=== PATIENT | male | born 1995 | race Asian ===

== ENCOUNTER 2018-07-04 22:13 | Observation (INO) ==
[2018-07-04] MEDS ORDERED: MoRPHine SULFATE 4 MG/ML 1 ML CARP\\VIAL IV STA (23:16)
[2018-07-04] MEDS ORDERED: ONDANSETRON INJ 2 MG/ML 2 ML VIAL IV STA (23:16)
[2018-07-04] MEDS ORDERED: SODIUM CHLORIDE 0.9% 1000ML 1,000 ML IV STA (23:16)
[2018-07-04 23:17] LABS: Basophils # (auto) 0.02 K/uL (0-0.2); Basophils % (auto) 0.1 %; Eosinophils # (auto) 0.15 K/uL (0-0.5); Hematocrit (blood only) 43.2 % (42-52); Hemoglobin 16.3 g/dL (14.0-18.0); Immature Granulocytes # (auto) 0.05 K/uL (0.00-0.02); Immature Granulocytes % (auto) 0.3 %; Lymphocytes # (auto) 0.88 K/uL (1.2-3.4); Lymphocytes % (auto) 5.7 %; Mean Corpuscular Hgb Conc 37.7 g/dL (32-36); Mean Corpuscular Volume 86.7 fL (80-100); Mean Platelet Volume 9.7 fL (7.4-10.4); Monocytes # (auto) 1.07 K/uL (0.11-0.59); Neutrophils # (auto) 13.14 K/uL (1.4-6.5); Neutrophils % (auto) 85.9 %; Platelet Count 244 K/uL (130-400); RDW Coefficient of Variation 11.9 % (11.5-14.5); RDW Standard Deviation 37.7 fL (36.4-46.3); Red Blood Count 4.98 M/uL (4.7-6.1); White Blood Count 15.31 K/uL (4.8-10.8)
[2018-07-04 23:47] LABS: Alanine Aminotransferase 18 U/L (12-78); Albumin Level 4.3 gm/dl (3.4-5.0); Alkaline Phosphatase 107 U/L (45-117); Aspartate Aminotransferase 16 U/L (15-37); BUN Creatinine Ratio 11.8 (10-20); Bilirubin,Total 1.3 mg/dl (0.2-1); Blood Urea Nitrogen 11 mg/dl (7-18); Calcium 9.5 mg/dl (8.5-10.1); Carbon Dioxide 24 mmol/L (21-32); Chloride 103 mmol/L (98-107); Est GFR (African American) 127.7; Est GFR (Non-African American) 110.2; Globulin 4.5 gm/dl (2.5-4.0); Glucose 93 mg/dl (70-99); Potassium 3.6 mmol/L (3.5-5.1); Sodium 136 mmol/L (136-145); Total Protein 8.8 gm/dl (6.4-8.2)
[2018-07-04] MEDS ORDERED: MoRPHine SULFATE 2 MG/ML CARP IV STA (23:52)
[2018-07-04] MEDS ORDERED: ACETAMINOPHEN 325 MG TAB PO STA (23:52)
[2018-07-05] MEDS ORDERED: IOVERSOL 100ml IV PRN (00:29)
[2018-07-05] MEDS ORDERED: cefTRIAXone SODIUM 1,000 MG/50 ML BAG IV STA (00:46)
[2018-07-05] MEDS ORDERED: MoRPHine SULFATE 4 MG/ML 1 ML CARP\\VIAL IV PRN (04:17)
--- NOTE | 2018-07-05 05:26 | History & Physical Report ---
Date of Service July 05, 2018 Assessment & Plan (1) Pneumonia: Pneumonia involving right lower lobe- Given ceftriaxone 1 g IV in the ED. Placed on ceftriaxone 1 g IV daily and azithromycin 500 mg IV daily. Patient does not wish any additional treatments due to concerns regarding expense. Therefore no nebulizers ordered. 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 He is supposed to have his dorm room today. And will likely need a note to say he was hospitalized. He is due to graduate on Monday, in 2 days, and then will move to [place] for 3 weeks to be with his aunt who is a nurse, and then will be moving back to [facility]. Present on Admission?: Yes History of Present Illness Chief Complaint: The patient presented to the emergency department with right-sided discomfort worsening over the past few days. Primary Care Provider: NO PCP The patient is a 22-year-old graduating [employer] student, who presented to the emergency department with right-sided discomfort and fatigue worsening over the past few days. Work-up in the emergency department included appropriate laboratories and a CT of the abdomen the pelvis. CT was negative for acute abdominal pathology, but did show an infiltrate at the right lower lobe, and the patient was then referred for evaluation for admission for pneumonia. He has not had any recent travels or sick exposures, other than to other [employer] students. 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 Beliefs That Will Affect Care: None Current Living Situation: Alone Other Information That Helps Us Care for You: No Feels Safe at Home: Yes Safety Concerns: Feels Safe At This Time Smoking Status: Current every day smoker Tobacco Type: e-cigarettes Do You Dip or Chew Tobacco: No Second Hand Exposure: No Tobacco Cessation Education Requested by Patient: No Hx Alcohol Use: No Hx Substance Use: No Review of Systems Review of Systems: The patient denies palpitations, shortness of breath, dyspnea on exertion, cough, lower extremity swelling, sore throat, fevers, chills, sweats, weight change, nausea, vomiting, diarrhea , constipation, abdominal pain, pelvic pain, blood in urine or stool, dysuria, urinary frequency or urgency, lightheadedness, dizziness, headache, memory loss, loss of consciousness, rash, abnormal bruising or bleeding, imbalance, focal or generalized weakness, numbness or tingling in arms or legs, generalized arthralgias or myalgias, back or neck pain, or night sweats. The review of systems is otherwise negative other than for that already noted above, and at least 10 systems have been reviewed. Physical Exam Physical Exam: The patient is awake, alert and oriented 3, well developed and well nourished, normocephalic and atraumatic, lying in bed and in no acute distress. HEENT--PERRL, EOMI, mucous membranes and oropharynx dry. Neck--supple. No JVD. No bruits. Thyroid normal, trachea midline, no adenopathy. Heart--normal S1 and S2. No murmurs, rubs or gallops. Lungs--decreased breath sounds right base, no respiratory distress, no accessory muscle use. Abdomen--normal bowel sounds and soft. Nontender. Nondistended, no hernias or masses, no organomegaly. Extremities--no cyanosis or clubbing. No edema. There are good distal pulses b/l. Dermatologic--normal skin turgor, normal color, no abnormal lymph nodes, no rash. Neurologic--cranial nerves II through XII grossly intact. Rheumatologic--normal range of motion. Psychiatric--normal affect. Results & Data Vital Signs (Past 12 Hours) Vital Signs Temp Pulse Pulse Resp BP BP Pulse Ox 07/05/18 03:35 98.2 F 91 H 20 127/74 97 07/05/18 02:41 93 H 18 122/63 97 07/05/18 01:21 98.2 F 113 H 22 95 07/05/18 00:30 104 H 128/86 100 07/04/18 22:21 102.7 F H 110 H 18 130/74 97 Laboratory Results Laboratory Results WBC 15.31 K/uL (4.8-10.8) H 07/04/18 23:00 RBC 4.98 M/uL (4.7-6.1) 07/04/18 23:00 Hgb 16.3 g/dL (14.0-18.0) 07/04/18 23:00 Hct 43.2 % (42-52) 07/04/18 23:00 MCV 86.7 fL (80-100) 07/04/18 23:00 MCH 32.7 pg (25-34) 07/04/18 23:00 MCHC 37.7 g/dL (32-36) H 07/04/18 23:00 RDW Std Deviation 37.7 fL (36.4-46.3) 07/04/18 23:00 RDW Coeff of [place]rina 11.9 % (11.5-14.5) 07/04/18 23:00 Plt Count 244 K/uL (130-400) 07/04/18 23:00 MPV 9.7 fL (7.4-10.4) 07/04/18 23:00 Immature Gran % (Auto) 0.3 % 07/04/18 23:00 Neut % (Auto) 85.9 % 07/04/18 23:00 Lymph % (Auto) 5.7 % 07/04/18 23:00 [place] % (Auto) 7.0 % 07/04/18 23:00 Eos % (Auto) 1.0 % 07/04/18 23:00 Baso % (Auto) 0.1 % 07/04/18 23:00 Immature Gran # (Auto) 0.05 K/uL (0.00-0.02) H 07/04/18 23:00 Neut # (Auto) 13.14 K/uL (1.4-6.5) H 07/04/18 23:00 Lymph # (Auto) 0.88 K/uL (1.2-3.4) L 07/04/18 23:00 [place] # (Auto) 1.07 K/uL (0.11-0.59) H 07/04/18 23:00 Eos # (Auto) 0.15 K/uL (0-0.5) 07/04/18 23:00 Baso # (Auto) 0.02 K/uL (0-0.2) 07/04/18 23:00 Sodium 136 mmol/L (136-145) 07/04/18 23:00 Potassium 3.6 mmol/L (3.5-5.1) 07/04/18 23:00 Chloride 103 mmol/L (98-107) 07/04/18 23:00 Carbon Dioxide 24 mmol/L (21-32) 07/04/18 23:00 Anion Gap 9.0 (3-11) 07/04/18 23:00 BUN 11 mg/dl (7-18) 07/04/18 23:00 Creatinine 0.96 mg/dl (0.6-1.4) 07/04/18 23:00 Est Cr Clr Drug Dosing Not Reportable 07/04/18 23:00 Est GFR ( Amer) 127.7 07/04/18 23:00 Est GFR (Non-Af Amer) 110.2 07/04/18 23:00 BUN/Creatinine Ratio 11.8 (10-20) 07/04/18 23:00 Glucose 93 mg/dl (70-99) 07/04/18 23:00 Calcium 9.5 mg/dl (8.5-10.1) 07/04/18 23:00 Total Bilirubin 1.3 mg/dl (0.2-1) H 07/04/18 23:00 AST 16 U/L (15-37) 07/04/18 23:00 ALT 18 U/L (12-78) 07/04/18 23:00 Alkaline Phosphatase 107 U/L (45-117) 07/04/18 23:00 Total Protein 8.8 gm/dl (6.4-8.2) H 07/04/18 23:00 Albumin 4.3 gm/dl (3.4-5.0) 07/04/18 23:00 Globulin 4.5 gm/dl (2.5-4.0) H 07/04/18 23:00 Albumin/Globulin Ratio 1.0 (0.9-2) 07/04/18 23:00 Lipase 78 U/L (73-393) 07/04/18 23:00 Diagnostic Findings [facility] Patient: SYED PULLIAM (Male) Age: 22 MR #: [id number] Status: ER Date: 07/05/18 00:25 Slices: [id number] History: PAIN AT RIGHT FLANK, STATES HARD TO BREATH WHEN HE LIES DOWN Priors: Tech: Boris Falcon @ [phone] Exams: CT ABDOMEN & PELVIS With Contrast Contrast: IV Amt: 93 ML OPTIRAY 320 Accession Numbers: [id number] Preliminary Findings Only See Final Report For Complete Findings CT ABDOMEN & PELVIS With Contrast: Patchy consolidations in the right lower lobe are compatible with pneumonia. Trace right pleural effusion. No hydronephrosis or obstructing stone. Normal appendix. No bowel obstruction or inflammation. Tiny fat-containing umbilical hernia. Radiologist: Ruddy Nolasco M.D. Study ready at 00:25 and initial results transmitted at 00:41 *This report constitutes a preliminary interpretation only. Non-acute findings felt to be unrelated to the clinical presentation may not be discussed in this report. The study will be interpreted and a final report will be generated by the local Radiologist the following shift. To reach the hospital radiology department call [phone]. If a discrepancy is found between the preliminary and final interpretations of this study, please notify us via our Client Portal at [email or web address]. You can also fax this report with a description of the discrepancy, or include the final report, to our daytime fax number [phone]. If faxing, please indicate the severity of discrepancy using one of the following categories: [ ] 1 - Agree/Informational [ ] 2 - Unlikely to Affect Management [ ] 3 - Possible Eventual Change of Management [ ] 4 - Probable Immediate Change of Management For all other patient related information, please fax us at [phone]. Code Status & VTE Plan Code Status Full code VTE Prophylaxis Plan VTE Prophylaxis will be ordered: Yes (1) Pneumonia Laterality: right Lung location: lower lobe of lung Pneumonia type: due to unspecified organism Qualified Code(s): J18.1 - Lobar pneumonia, unspecified organism
--- NOTE | 2018-07-05 06:37 | CT Scan Report ---
CT abd pelvis IV con only CT DOSE: 357.81 mGy.cm HISTORY: Pain. Nausea. rlq pain eval for appe TECHNIQUE: Multiaxial CT images of the abdomen and pelvis were performed following the use of intrave nous contrast. A dose lowering technique was utilized adhering to the principles of ALARA. COMPARISON STUDY: None. FINDINGS: Parenchymal infiltrate right lower lobe. Minimal atelectasis left base. Liver spleen and pancreas are unremarkable. Kidneys enhance uniformly. Nonobstructive bowel pattern. Normal appendix. Bladder is midline. No free fluid within the pelvic cul-de-sac. IMPRESSION: 1. Infiltrate right base. 2. Negative CT specifically of the abdomen and pelvis. The above report was generated using voice recognition software. It may contain grammatical, syntax or spelling errors. Electronically signed by: Naeem Wright M.D. 07/05/2018 6:35 AM
--- NOTE | 2018-07-05 07:19 | XRay Report ---
TWO VIEW CHEST CLINICAL HISTORY: Dyspnea. Fever. FINDINGS: PA and lateral chest radiographs are obtained. No prior studies are available for compariso n at the time of dictation. The PA view is degraded by patient rotation. The cardiomediastinal silhou ette is unremarkable. There is patchy airspace consolidation seen at the right lung base. No pleural effusion or pneumothorax is seen. The bony thorax appears intact. IMPRESSION: There is patchy airspace consolidation at the right lung base typical in appearance for p neumonia. Clinical correlation will be required and radiographic follow-up to resolution is recommend ed. Electronically signed by: Jake Nielsen M.D. 07/05/2018 7:17 AM
[2018-07-05] MEDS: AZITHROMYCIN 500 MG in DEXTROSE 5% 250 ML IV SCH (07:56)
[2018-07-05 10:28] LABS: Appearance Urine Clear (Clear); Bilirubin Urine Negative (Negative); Blood Urine Negative (Negative); Color Urine Yellow; Glucose Urine UA Negative (Negative); Ketones Urine 2+ (Negative); Leukocyte Esterase Urine Negative (Negative); Nitrite Urine Negative (Negative); Protein Urine Negative (Negative); Specific Gravity Urine 1.022 (1.000-1.030); Urobilinogen Urine Negative (Negative); pH Urine 5.5 (4.5-7.5)
[2018-07-05] MEDS ORDERED: ACETAMINOPHEN 325 MG TAB PO PRN (16:53)
--- NOTE | 2018-07-05 17:57 | Emergency Department Note ---
Entered by Rina Hidalgo acting as a scribe for Chino Raygoza MD History of Present Illness General Chief complaint: Abdominal Pain Stated complaint: STOMACH PAIN Source: patient Mode of arrival: ambulatory Limitations: no limitations History of Present Illness Provider complaint: abdominal pain Onset (ago): hour(s) (this morning) Location: abdomen and right Radiation: back Pain Consistency: + other (worsening) Maximum Pain Intensity: 9 Quality: + sharp Associated symptoms: + denies other symptoms (diarrhea, urinary) and + fever/chills; no nausea/vomiting Treatments prior to arrival: other (Tylenol) The patient is a 22 year old male who presents to the ER with complaints of a w orsening abdominal pain that began this morning. The patient reports that the pain is located on the right side of his abdomen and that it radiates to his back. He describes it has sharp. He denies any nausea, vomiting or diarrhea. He also denies any urinary symptoms. He notes that he did take 2 Tylenol this morning for a fever. He denies ever having any surgeries performed. He also denies any family or personal history of kidney stones. He states the pain makes him short of breath. He denies any cough or chest pain. 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 and A total of 10 systems reviewed and were otherwise negative Physical Exam Vital Signs Vital Signs - 24 hr 07/04/18 22:21 07/04/18 23:19 07/05/18 00:30 Temperature 39.3 C H Temperature Source Oral Sepsis Recent Fever Within 48 Hours Yes Sepsis New/Unexplained Change in Mental Status No Sepsis Action Taken by Nursing No Action Required Pulse Rate 110 H Pulse Rate [Finger] 104 H Respiratory Rate 18 Respiratory Effort / Characteristics Non-Labored Respiratory Depth Normal Respiratory Pattern Blood Pressure 130/74 Blood Pressure [Right Arm] 128/86 Blood Pressure Mean 92 Blood Pressure Mean [Right Arm] 100 Blood Pressure Position [Right Arm] Pulse Oximetry 97 100 Oxygen Delivery Method Room Air Nasal Cannula Oxygen Flow Rate 2 07/05/18 01:21 07/05/18 02:41 07/05/18 03:35 Temperature 36.8 C 36.8 C Temperature Source Oral Oral Sepsis Recent Fever Within 48 Hours Sepsis New/Unexplained Change in Mental Status Sepsis Action Taken by Nursing Pulse Rate Pulse Rate [Finger] 113 H 93 H 91 H Respiratory Rate 22 18 20 Respiratory Effort / Characteristics Respiratory Depth Respiratory Pattern Blood Pressure Blood Pressure [Right Arm] 122/63 127/74 Blood Pressure Mean Blood Pressure Mean [Right Arm] 82 91 Blood Pressure Position [Right Arm] Pulse Oximetry 95 97 97 Oxygen Delivery Method Room Air Room Air Room Air Oxygen Flow Rate 07/05/18 07:00 07/05/18 08:00 07/05/18 15:00 Temperature 37.1 C 37.3 C Temperature Source Oral Oral Sepsis Recent Fever Within 48 Hours Sepsis New/Unexplained Change in Mental Status Sepsis Action Taken by Nursing Pulse Rate Pulse Rate [Finger] 93 H 114 H Respiratory Rate 18 18 Respiratory Effort / Characteristics Non-Labored Spontaneous Respiratory Depth Normal Respiratory Pattern Regular Blood Pressure Blood Pressure [Right Arm] 110/66 104/62 Blood Pressure Mean Blood Pressure Mean [Right Arm] 80 76 Blood Pressure Position [Right Arm] Lying Lying Pulse Oximetry 97 96 Oxygen Delivery Method Room Air Room Air Room Air Oxygen Flow Rate 07/05/18 16:18 07/05/18 16:26 Temperature 37.9 C H Temperature Source Oral Sepsis Recent Fever Within 48 Hours Sepsis New/Unexplained Change in Mental Status Sepsis Action Taken by Nursing Pulse Rate Pulse Rate [Finger] Respiratory Rate Respiratory Effort / Characteristics Non-Labored Spontaneous Respiratory Depth Normal Respiratory Pattern Regular Blood Pressure Blood Pressure [Right Arm] Blood Pressure Mean Blood Pressure Mean [Right Arm] Blood Pressure Position [Right Arm] Pulse Oximetry Oxygen Delivery Method Room Air Oxygen Flow Rate Constitutional: Vital signs reviewed. The patient appears in significant pain. Eyes: Pupils are equal round reactive to light. Conjunctiva are noninjected. ENT: Pharynx is clear without erythema or exudate. Mucous membranes are moist. Neck supple without meningeal signs. Respiratory: Clear to auscultation bilaterally. Breath sounds are equal bilaterally. Cardiovascular: Tachycardic. No rubs or gallops. GI: Soft, nondistended. Right-sided abdominal tenderness with voluntary guarding. Bowel sounds are present. The exam is limited as the patient will not lie down on the stretcher. Musculoskeletal: No peripheral edema. No lower extremity tenderness. Integumentary: No cyanosis. Neurological: The patient is awake and alert. No focal deficits. Psychiatric: Anxious appearing. Course 2311: The patient was evaluated in room A12A, and a complete history and physical examination were performed. 2352: The patient is still in pain after pain medication. 0044: The nurse put the patient on oxygen secondary to difficulty breathing when lying down. He allowed me to lay him down briefly and his tenderness is mostly in the right upper and mid abdomen, with continued voluntary guarding. He denies any leg pain or swelling. 0117: He desats when walks around and is unable to lay flat. His HR is in the 120s. I recommended hospitalization. Administered Medications Acetaminophen (Tylenol) 650 mg PO Q4H PRN PRN Reason: fever/pain Stop: 08/04/18 16:52 Last Admin: 07/05/18 16:58 Dose: 650 mg Documented by: [id number] Azithromycin 500 mg/ Dextrose 255 mls @ 125 mls/hr IV DAILY TROY Stop: 07/12/18 08:59 Last Infusion: 07/05/18 10:22 Dose: 0 mls/hr Documented by: [id number] Admin: 07/05/18 07:56 Dose: 125 mls/hr Documented by: [id number] Morphine Sulfate (Morphine Sulfate) 4 mg IV Q4H PRN PRN Reason: Pain Stop: 07/19/18 04:16 Last Admin: 07/05/18 04:27 Dose: 4 mg Documented by: [id number] Discontinued Medications Acetaminophen (Tylenol) 650 mg PO NOW STA Stop: 07/04/18 23:53 Last Admin: 07/05/18 00:42 Dose: 650 mg Documented by: [id number] Sodium Chloride (Nss 1000ml) 1,000 mls @ 999 mls/hr IV .Q1H1M STA Stop: 07/05/18 00:16 Last Infusion: 07/05/18 00:42 Dose: 0 mls/hr Documented by: [id number] Admin: 07/04/18 23:25 Dose: 999 mls/hr Documented by: [id number] Ceftriaxone Sodium (Rocephin) 1,000 mg in 50 mls @ 100 mls/hr IV NOW STA Stop: 07/05/18 01:15 Last Infusion: 07/05/18 01:29 Dose: 0 mls/hr Documented by: [id number] Admin: 07/05/18 01:02 Dose: 100 mls/hr Documented by: [id number] Ioversol (Optiray 320 100ml) 100 ml IV ONCE PRN PRN Reason: Interaction Checking Stop: 07/09/18 00:28 Last Admin: 07/05/18 00:29 Dose: 93 ml Documented by: [id number] Morphine Sulfate (Morphine Sulfate) 4 mg IV NOW STA Stop: 07/04/18 23:17 Last Admin: 07/04/18 23:25 Dose: 4 mg Documented by: [id number] Morphine Sulfate (Morphine Sulfate) 2 mg IV NOW STA Stop: 07/04/18 23:53 Last Admin: 07/05/18 00:17 Dose: 2 mg Documented by: [id number] Ondansetron HCl (Zofran) 4 mg IV NOW STA Stop: 07/04/18 23:17 Last Admin: 07/04/18 23:25 Dose: 4 mg Documented by: [id number] Medical Decision Making Differential Diagnosis Differential diagnosis includes: kidney stone, appendicitis, abscess, ileitis, and perforation. Medical Records Attestation: I reviewed the patient's medical records. I did perform a limited focused review of portions of the patient's old chart on the electronic medical record. The patient has had no prior visits to this hospital. Home Medications Current Medication List: was personally reviewed by me Laboratory Data Attestation: I reviewed the patient's lab results. Result diagrams: 07/04/18 23:00 07/04/18 23:00 Lab Results 07/04/18 07/04/18 07/05/18 Range/Units 23:00 23:00 08:20 WBC 15.31 H (4.8-10.8) K/uL RBC 4.98 (4.7-6.1) M/uL Hgb 16.3 (14.0-18.0) g/dL Hct 43.2 (42-52) % MCV 86.7 (80-100) fL MCH 32.7 (25-34) pg MCHC 37.7 H (32-36) g/dL RDW Std Deviation 37.7 (36.4-46.3) fL RDW Coeff of Macrina 11.9 (11.5-14.5) % Plt Count 244 (130-400) K/uL MPV 9.7 (7.4-10.4) fL Immature Gran % (Auto) 0.3 % Neut % (Auto) 85.9 % Lymph % (Auto) 5.7 % [place] % (Auto) 7.0 % Eos % (Auto) 1.0 % Baso % (Auto) 0.1 % Immature Gran # (Auto) 0.05 H (0.00-0.02) K/uL Neut # (Auto) 13.14 H (1.4-6.5) K/uL Lymph # (Auto) 0.88 L (1.2-3.4) K/uL [place] # (Auto) 1.07 H (0.11-0.59) K/uL Eos # (Auto) 0.15 (0-0.5) K/uL Baso # (Auto) 0.02 (0-0.2) K/uL Sodium 136 (136-145) mmol/L Potassium 3.6 (3.5-5.1) mmol/L Chloride 103 (98-107) mmol/L Carbon Dioxide 24 (21-32) mmol/L Anion Gap 9.0 (3-11) BUN 11 (7-18) mg/dl Creatinine 0.96 (0.6-1.4) mg/dl Est Cr Clr Drug Dosing Not Reportable Est GFR ( Amer) 127.7 Est GFR (Non-Af Amer) 110.2 BUN/Creatinine Ratio 11.8 (10-20) Glucose 93 (70-99) mg/dl Calcium 9.5 (8.5-10.1) mg/dl Total Bilirubin 1.3 H (0.2-1) mg/dl AST 16 (15-37) U/L ALT 18 (12-78) U/L Alkaline Phosphatase 107 (45-117) U/L Total Protein 8.8 H (6.4-8.2) gm/dl Albumin 4.3 (3.4-5.0) gm/dl Globulin 4.5 H (2.5-4.0) gm/dl Albumin/Globulin Ratio 1.0 (0.9-2) Lipase 78 (73-393) U/L Urine Color Yellow Urine Appearance Clear (Clear) Urine pH 5.5 (4.5-7.5) Ur Specific [place] 1.022 (1.000-1.030) Urine Protein Negative (Negative) Urine Glucose (UA) Negative (Negative) Urine Ketones 2+ H (Negative) Urine Blood Negative (Negative) Urine Nitrite Negative (Negative) Urine Bilirubin Negative (Negative) Urine Urobilinogen Negative (Negative) Ur Leukocyte Esterase Negative (Negative) Imaging Data Attestation: I personally reviewed and interpreted this imaging study as follows: My Impression: CHEST X-RAY: Right lower lobe infiltrate. Radiologist's Impression: Radiology results as stated below per my review and the radiologist's interpretation: CT ABDOMEN & PELVIS w Contrast: Pathcy consolidations in the right lower lobe are compatible with pneumonia. Trace right pleural effusion. No Hydronephrosis or obstructing stone. Normal appendix. No bowel obstruction or inflammation. Tiny fat-containing umbilical hernia. Radiologist: Ruddy Nolasco MD Study read at 0025. Blood Pressure Blood Pressure Findings: Normal blood pressure Blood Pressure Disposition: did not require urgent referral MDM Narrative I did evaluate the patient as noted above. Patient is presenting with right- sided abdominal pain starting this morning and getting worse this afternoon. He has diffuse tenderness to the right abdomen with voluntary guarding. IV access was established. The patient was placed on a continuous laboratory monitor. I did treat the patient with IV morphine and Zofran. He was also given a liter normal saline IV. I did order a urine analysis. There is no evidence of infection. I did order and review the patient's blood work as noted in the electronic medical record. His white count is elevated. I did order a CT of the abdomen and pelvis to evaluate for appendicitis or kidney stone. I did review the images myself as well as the radiology report as described above. There is no acute intra-abdominal process but he does appear to have a pneumonia. I did order and personally reviewed the images of the patient's chest x-ray as described above. He does have infiltrate to the right side. Blood cultures were ordered. I did treated with ceftriaxone. I did reassess the patient. He is still having pain was given additional IV morphine and Zofran. He is still tachycardic. He is now on oxygen as he is uncomfortable laying back. Given the rapidity of progression of his symptoms and his continued tachycardia and and pain with difficulty breathing I did recommend hospitalization. I did discuss case with the hospitalist and manager of case management. Impression & Plan Pneumonia Discharge Plan Visit Data *Final* Discharge Date/Time: 07/05/18 02:42 Chief Complaint: Abdominal Pain Stated Complaint: STOMACH PAIN ED Provider: Chino Raygoza Discharge Problem: Pneumonia Patient Disposition: Admitted As Inpatient Discharge Instructions Interventions: ED Discharge Assessment Last Done: 07/05/18 02:42 Discharge Problem: Pneumonia Qualifiers: Pneumonia type: due to unspecified organism Laterality: right Lung location: lower lobe of lung Qualified Code(s): J18.1 - Lobar pneumonia, unspecified organism The scribe's documentation has been prepared under my direction and personally reviewed by me in its entirety. I confirm that the note above accurately reflects all work, treatment, procedures, and medical decision making performed by me.
--- NOTE | 2018-07-05 18:37 | Hospitalist Progress Note ---
Date of Service July 05, 2018 Assessment & Plan (1) Pneumonia: - continue azithromycin and ceftriaxone - Patient does not wish any additional treatments due to concerns regarding expense. - Therefore no nebulizers ordered. Sating well on RA - if no further fevers tomorrow and cultures result, will discharge tomorrow afternoon Subjective Mr. Spencer's pain has improved from admission. He has never had a cough, sob has improved. Mild tachycardia and fever Review of Systems Review of Systems: All systems reviewed & are unremarkable except as noted in HPI & below Physical Exam Physical Exam: General: no distress Eyes: normal inspection, PERLL Respiratory: chest non tender, clear to auscultation, normal breath sounds, no respiratory distress, no accessory muscle use Cardiac: regular rate and rhythm, no rub or gallop, no murmur, no edema, no jvd GI/: active bowel sounds, no abd pain or tenderness, soft, non distended Extremities: normal range of motion, normal strength, non tender Neuro/Psych: alert and oriented x 3, normal mood and affect Skin: normal color, dry Results & Data Vital Signs (Past 12 Hours) Vital Signs Temp Pulse Resp BP Pulse Ox 07/05/18 16:18 37.9 C H 07/05/18 15:00 37.3 C 114 H 18 104/62 96 07/05/18 07:00 37.1 C 93 H 18 110/66 97 (1) Pneumonia Laterality: right Lung location: lower lobe of lung Pneumonia type: due to unspecified organism Qualified Code(s): J18.1 - Lobar pneumonia, unspecified organism
[2018-07-06] MEDS ORDERED: cefTRIAXone SODIUM 1,000 MG in DEXTROSE 5% 50 ML IV SCH
[2018-07-06 08:00] LABS: Basophils # (auto) 0.01 K/uL (0-0.2); Basophils % (auto) 0.1 %; Eosinophils # (auto) 0.09 K/uL (0-0.5); Eosinophils % (auto) 0.7 %; Immature Granulocytes # (auto) 0.04 K/uL (0.00-0.02); Immature Granulocytes % (auto) 0.3 %; Lymphocytes # (auto) 1.78 K/uL (1.2-3.4); Lymphocytes % (auto) 14.2 %; Mean Corpuscular Hgb Conc 35.9 g/dL (32-36); Mean Corpuscular Volume 88.2 fL (80-100); Mean Platelet Volume 9.4 fL (7.4-10.4); Monocytes # (auto) 1.33 K/uL (0.11-0.59); Monocytes % (auto) 10.6 %; Neutrophils # (auto) 9.28 K/uL (1.4-6.5); Neutrophils % (auto) 74.1 %; Platelet Count 226 K/uL (130-400); RDW Coefficient of Variation 11.8 % (11.5-14.5); Red Blood Count 4.42 M/uL (4.7-6.1); White Blood Count 12.53 K/uL (4.8-10.8)
[2018-07-06] MEDS: AZITHROMYCIN 500 MG in DEXTROSE 5% 250 ML IV SCH (08:00)
[2018-07-06 08:18] LABS: BUN Creatinine Ratio 8.6 (10-20); Calcium 8.8 mg/dl (8.5-10.1); Creatinine Clr Calc Pharmacy 104.2 ml/min; Est GFR (African American) 109.5; Est GFR (Non-African American) 94.5; Potassium 3.6 mmol/L (3.5-5.1)
[2018-07-06 09:11] LABS: Albumin Level 3.3 gm/dl (3.4-5.0); Bilirubin Direct 0.2 mg/dl (0-0.2); Bilirubin,Total 0.8 mg/dl (0.2-1); Total Protein 7.7 gm/dl (6.4-8.2)
--- NOTE | 2018-07-06 11:31 | Discharge Summary ---
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 Work-up in the emergency department included appropriate laboratories and a CT of the abdomen the pelvis. CT was negative for acute abdominal pathology, but did show an infiltrate at the right lower lobe, and the patient was then referred for evaluation for admission for pneumonia. He has not had any recent travels or sick exposures, other than to other [employer] students. Principal Diagnosis Pneumonia Discharge Exam Constitutional WD/WN, vitals as above Respiratory normal respiratory effort, lungs clear to auscultation Cardiovascular RRR, no murmur, no edema Gastrointestinal (Abdomen) Inspection/Auscultation: abdomen normal to inspection and normal bowel sounds; abdomen not distended Percussion/Palpation: abdomen nontender Musculoskeletal no cyanosis or clubbing, extremities motor strength 5/5 Skin no rashes, warm and dry Neurologic moves all extremities and awake Psychiatric A+Ox3, euthymic affect Discharge Data Allergies Allergy/AdvReac Type Severity Reaction Status Date / Time No Known Allergies Allergy Unverified 07/04/18 23:00 Consultations 07/05/18 01:19 ED Decision to Admit Stat Ordered Studies 07/04/18 23:16 CT abd pelvis IV con only Stat Hospital Course (1) Pneumonia: - IV azithromycin and ceftriaxone while inpatient - will give three more days of azithromycin and Augmentin for home for total of five days of treatment. Patient has not had any fever for 24 hours. - Patient does not wish any additional treatments due to concerns regarding expense - saturating mid to high 90s on room air. Back pain is much improved though still present. He is no longer sob. - denies recent alcohol intake, reports he drinks about once a month and not to excess so I doubt aspiration pneumonia. - ngtd - patient is graduating from [employer] tomorrow and is anxious for discharge today. He is still mildly tachycardic around 110 bpm. Leukocytes have decreased from 15 to 12. PSI score makes him a risk class I 0.1% mortality making outpatient treatment reasonable at this point. He ambulated the halls multiple laps and maintained saturations in the mid 90s. I did caution him that if his symptoms were to worsen or he becomes more sob or runs fevers, he should call his doctor right away or return to the ED. Total Time Total Time Spent Total Time Spent (In Minutes): greater than 30 minutes Discharge Plan Discharge Items Patient Disposition: Home - Self-Care Reason For Visit: PNEUMONIA OF RIGHT LOWER LUNG Discharge Diagnosis: Pneumonia Discharge Goals: Improve disease control Activity: Resume your previous activity Activity Comment: gradually as tolerated Non-emergency contact: Primary Care Provider Call non-emergency contact if: you have any medication questions, your symptoms worsen, your pain is not controlled and your temperature is above 101 Follow-up/Referrals: PCP,NO [Primary Care Provider] - Diet: Regular Addtl Provider Instructions: Please follow up with S or your primary care provider in a week. Take it easy and listen to your body. It will take time before you feel completely well. If you begin to run fevers again or start to feel worse or become increasingly more short of breath or have increased pain, you should tell your doctor right a way or return to the emergency department Take a dose of amoxicillin clavulanate (Augmentin) tonight. You received a dose of azithromycin this morning so you do not need a dose until tomorrow . You will take three more days for a total of 5 days of antibiotic therapy Prescriptions: New azithromycin 250 mg tablet 250 mg PO DAILY Qty: 3 RF: 0 amoxicillin-pot clavulanate [Augmentin] 875-125 mg tablet 1 tab PO BID Qty: 7 RF: 0 No Action No Known Home Medications RF: 0 Stand-Alone Forms: [facility]/Other Patient Handouts: Pneumonia Discharge Orders: Discharge Order (Routine); Ordered 07/06/18 Ordered By: Rita Nur Admission Data Admit Date/Time: 07/05/18 02:18 Attending Provider: True Del Toro Admit Provider: Lorenzo Alexis Primary Care Provider: PCP,NO Other Providers: Lorenzo Alexis ; Rita Nur Service: Medical
[2018-07-06 15:54] VITALS: PULSE 93; TEMP 97.9; O2SAT 95
[2018-07-06 16:13] VITALS: BP 104/62
== END 2018-07-06 16:50 | disposition home or self-care (01) ==
LOC: 4E 22:13 → ED 22:13 → SUATTDRO 07-05 02:18 → 4E 07-05 02:42